=== PATIENT | female | born 1990 | race African-American/Black ===

== ENCOUNTER 2020-10-23 11:51 | Observation (INO) | payer BC, SELFPAY ==
--- NOTE | ~2020-10-23 | US_ITS ---
EXAMINATION: US OB >= 14 weeks Fetus DATE: 10/23/2020 16:55 INDICATION: Gestational dating. TECHNIQUE: Real-time transabdominal and transvaginal obstetric ultrasound. FINDINGS: No prior studies for comparison. The uterus measures 12 x 9.4 x 8.6 cm. There is an intrauterine gestational sac, with pole iden tified. The crown rump length measures 2.87 cm, which correlates with a estimated gestational age of 9 weeks 5 days. heart tones are identified measuring 161 bpm. There are corpus luteal cyst o f the right ovary, largest measuring 2 cm. Left ovary is unremarkable. IMPRESSION: 1. SL IUP with an EGA of 9 weeks, 5 days (EDC by current ultrasound of 05/23/2021). Reviewed, dictated and finalized at location A. IMPRESSION: 1. SL IUP with an EGA of 9 weeks, 5 days (EDC by current ultrasound of 05/23/20 21).
[2020-10-23 13:27] VITALS: BP 92/55; PULSE 81
[2020-10-23 13:30] VITALS: BP 94/51; PULSE 79; RESP 18; TEMP 37.1
--- NOTE | 2020-10-23 13:30 | OBADM ---
This patient, Sofia Oneil I, admitted to the OB room 111 for at 1151 for observation due to hyperemesis. Patient/family oriented to hospital policies and general routines including ID bracelet, bed and alarms, visiting hours, pain management, procedures, bathroom and other care routines, personal items, smoking policy, room service/diet, and visiting hours. Patient/Family are encouraged to report perceived risks to care and to ask questions if they do not understand what they are told or what they should do.
[2020-10-23 13:39] LABS: Hematocrit 35.1 % (37.0-47.0); Hemoglobin 12.1 g/dL (12.0-15.0); Mean Corpuscular HGB Conc 34.5 g/dl (32-36); Mean Corpuscular Hemoglobin 30.5 pg (26-34); Mean Corpuscular Volume 88.4 fl (80-100); Mean Platelet Volume 9.2 fl (7.4-10.4); Platelet Count Result 324 k/mm3 (150-375); Red Blood Count 3.97 M/mm3 (4.2-5.4); Red Cell Distribution Width 16.8 % (11.5-14.5); White Blood Count 10.8 K/mm3 (4.5-10.0)
[2020-10-23] MEDS: DEXTROSE 5%/LACTATED RINGERS 1,000 ML 999 ML IV CONT (13:47)
[2020-10-23] MEDS: ONDANSETRON INJ 4 MG/2 ML VIAL IV PUSH (13:48)
[2020-10-23 13:49] LABS: Alanine Aminotransferase 12 U/L (4-35); Albumin Level 3.8 g/dL (3.5-5.1); Alkaline Phosphatase 56 U/L (38-126); Anion Gap 10 mmol/L (8-16); Aspartate Amino Transferase 23 U/L (14-36); Bilirubin,Total 0.3 mg/dL (0.2-1.3); Blood Urea Nitrogen 11 mg/dL (7-17); Carbon Dioxide 20 mmol/L (22-30); Chloride 106 mmol/L (98-107); Estimated Glomerular Filt Rate > 60; Glucose 82 mg/dL (65-105); Potassium 3.7 mmol/L (3.4-5.0); Sodium 136 mmol/L (137-145)
[2020-10-23] MEDS: FAMOTIDINE 20 MG/2 ML VIAL IV PUSH (13:51)
[2020-10-23 14:13] LABS: Add Urine Microscopic? YES; Appearance Urine Cloudy (Clear); Bilirubin Urine Negative (Negative); Color Urine Yellow (Yellow); Glucose Urine UA Negative (Negative); Ketones Urine Negative (Negative); Leukocyte Esterase Ur Negative LEU/UL (Negative); Mucus Urine Rare /lpf; Nitrate Urine Negative (Negative); Protein Urine 1+ mg/dL (Negative); Specific Grav Ur 1.019 (1.001-1.035); Squamous Epithelial Cell Urine Few /hpf (Few)
[2020-10-23 14:19] LABS: Blood Urine Negative (Negative)
[2020-10-23] MEDS: DEXTROSE 5%/LACTATED RINGERS 1,000 ML 200 ML IV CONT (15:20)
--- NOTE | 2020-10-23 15:44 | PC.NURSE ---
Dr. Montenegro informed of lab results, unable to doppler FHT's, pt's first U/S is scheduled for tomorrow. Informed pt has had 2 cups of ice chips, popcicle, saltines, and palmer crackers. Still has nausea, but no emesis since arrival. Order received for U/S today.
--- NOTE | 2020-10-23 17:16 | PC.NURSE ---
Dr. Montenegro informed of U/S results with gestational age of 9wks 5 days. No emesis since arrival. Has tolerated liquids and crackers. OK to discharge to home. MD calling in prescriptions for Reglan and Zofran.
--- NOTE | 2020-10-30 19:51 | PM.OBTRLD ---
OB - Triage/Final Diagnosis Visit Information Comments/Additional reasons for admission: I have assessed the risk for this patient, Sofia Oneil, and determined that she would benefit from observation care. Evaluation Laboratory results: Laboratory Tests 10/23/20 10/23/20 10/23/20 13:27 13:27 13:54 WBC 10.8 H RBC 3.97 L Hgb 12.1 Hct 35.1 L MCV 88.4 MCH 30.5 MCHC 34.5 RDW 16.8 H Plt Count 324 MPV 9.2 Sodium 136 L Potassium 3.7 Chloride 106 Carbon Dioxide 20 L Anion Gap 10 BUN 11 Creatinine 0.50 L Estim Creat Clear Calc Not Reportable Estimated GFR > 60 Glucose 82 Calcium 9.0 Total Bilirubin 0.3 AST 23 ALT 12 Alkaline Phosphatase 56 Total Protein 7.0 Albumin 3.8 Urine Color Yellow Urine Appearance Cloudy H Urine pH 7.0 Ur Specific [place] 1.019 Urine Protein 1+ H Urine Glucose (UA) Negative Urine Ketones Negative Ur Blood (Man) Negative Urine Nitrate Negative Urine Bilirubin Negative Urine Urobilinogen 2.0 H Leukocyte Esterase Rfl Negative Urine RBC 3-5 H Urine WBC 7-9 H Ur Squamous Epith Cells Few Urine Mucus Rare Final Diagnosis (1) Hyperemesis gravidarum: Code(s): O21.0 - Mild hyperemesis gravidarum Status: Acute (2) Dehydration during : Code(s): O26.899 - Other specified related conditions, unspecified trimester; E86.0 - Dehydration Status: Acute
== END 2020-10-23 15:10 | disposition home or self-care (01) ==
PROVIDERS: Admitting Provider Obstetrics & Gynecology; Visit Provider Obstetrics & Gynecology
DX: O21.0 Mild hyperemesis gravidarum (principal); O99.280 Endocrine, nutritional and metabolic diseases complicating pregnancy, unspecified trimester; E86.0 Dehydration; Z3A.00 Weeks of gestation of pregnancy not specified
CPT/HCPCS: 36415; 76805; 80053; 81001; 85027; 87086; 96361; 96374; 96375; G0378; G0379; J2405; J7121